=== PATIENT | male | born 1950 ===

== ENCOUNTER 2017-02-23 16:37 | Emergency (ER) | payer OTHER ==
[2017-02-23] MEDS ORDERED: PRINIVIL5 M1 PO (18:39)
[2017-02-23] MEDS ORDERED: NORVASC10 M2 PO (18:39)
[2017-02-23] MEDS ORDERED: ACETAMINOPHEN500 M4 PO (18:40)
[2017-02-23] MEDS ORDERED: LIPITOR40 M1 PO (18:40)
[2017-02-23] MEDS ORDERED: PENICILLIN V P500 M1 PO (18:42)
[2017-02-23] MEDS ORDERED: NORCO 5-325 TA1 EACH PO (19:04)
[2017-02-23] MEDS ORDERED: CEFDINIR300 M1 PO (19:04)
== END 2017-02-23 20:15 ==
LOC: EDMED 16:37
DX: L03.211 Cellulitis of face (principal); K08.89 Other specified disorders of teeth and supporting structures; R51 Headache; I10 Essential (primary) hypertension; Z79.899 Other long term (current) drug therapy
CPT/HCPCS: J0696